=== PATIENT | male | born 1955 | race Caucasian/White ===

== ENCOUNTER → 2017-05-23 | Outpatient (CLI) | payer OTHER | END | disposition home or self-care (01) | LOC: RAD 12:51 | DX: R05 Cough (principal); R06.02 Shortness of breath ==

== ENCOUNTER → 2017-12-14 | Outpatient (CLI) | payer OTHER | END | disposition home or self-care (01) | LOC: RAD 16:13 | DX: M47.892 Other spondylosis, cervical region (principal); M47.897 Other spondylosis, lumbosacral region; M25.512 Pain in left shoulder ==

== ENCOUNTER 2022-01-27 18:32 | Emergency (ER) | payer MEDICARE, OTHER ==
[~2022-01-27] VITALS: Ht 180.3 cm; Wt 120.2 kg
[2022-01-27 19:26] LABS: HEMATOCRIT 46.4 % (42.0-52.0); MEAN CORPUSCULAR HGB 28.5 pg (27.0-31.0); MEAN CORPUSCULAR HGB CONC 32.3 g/dl (33.0-37.0); MEAN PLATELET VOLUME 10.3 fl (9.6-12.3); PLATELET COUNT AUTOMATED 376 10*3/uL (130-400); RED BLOOD COUNT 5.27 10*6/uL (4.50-5.90); RED CELL DISTRI WIDTH 13.9 % (0-14.5); WHITE BLOOD COUNT 14.7 10*3/uL (4.8-10.8)
[2022-01-27 19:31] LABS: MANUAL DIFF REFLEX YES
[2022-01-27 19:40] LABS: ACT PARTIAL THROMBO TIME 28.2 SECONDS (20.0-32.1)
[2022-01-27 19:42] LABS: ALKALINE PHOSPHATASE 100 U/L (46-116); BUN 18 mg/dl (9-23); CHLORIDE 96 mmol/L (98-107); CREATININE 0.81 mg/dL (0.70-1.30); LIPASE 22 U/L (12-53); POTASSIUM 4.4 mmol/L (3.4-5.1); SGPT/ALT 35 U/L (10-49); SODIUM 133 mmol/L (136-145); TOTAL PROTEIN 7.6 gm/dL (6.0-8.0)
[2022-01-27 19:52] LABS: PLATELET SUFFICIENCY NORMAL (NORMAL); TOTAL CELLS COUNTED 100 #CELLS
[2022-01-27] MEDS ORDERED: PREDNISONE10 MG PO (19:58)
[2022-01-27] MEDS ORDERED: VIBRA-TAB100 MG PO (19:58)
== END 2022-01-27 19:56 | disposition left against medical advice (07) ==
LOC: ED 18:32
PROVIDERS: Emergency Medicine
DX: J40 Bronchitis, not specified as acute or chronic (principal); J44.9 Chronic obstructive pulmonary disease, unspecified; Z87.891 Personal history of nicotine dependence

== ENCOUNTER 2023-05-11 10:36 | Emergency (ER) | payer OTHER ==
[~2023-05-11] VITALS: Ht 180.3 cm; Wt 73.5 kg
[~2023-05-11 10:36] MED LIST: PREDNISONE10 MG PO; VIBRA-TAB100 MG PO
[2023-05-11] MEDS ORDERED: Acetaminophen/Hydrocodone 5 MG/325 MG TABLET PO ONE (11:05)
[2023-05-11] MEDS ORDERED: Bacitracin Zinc 14 GM TUBE T ONE (12:35)
[2023-05-11] MEDS ORDERED: HYDROCODONE-AC1 EAC1 PO (12:39)
== END 2023-05-11 12:58 | disposition home or self-care (01) ==
LOC: ED 10:36
DX: S22.41XA Multiple fractures of ribs, right side, initial encounter for closed fracture (principal); S80.211A Abrasion, right knee, initial encounter; M54.50 Low back pain, unspecified; J44.9 Chronic obstructive pulmonary disease, unspecified; W19.XXXA Unspecified fall, initial encounter; Y93.89 Activity, other specified; Y92.89 Other specified places as the place of occurrence of the external cause; Y99.8 Other external cause status

== ENCOUNTER 2024-01-04 09:36 | Emergency (ER) | payer OTHER ==
[~2024-01-04] VITALS: Ht 180.3 cm; Wt 63.5 kg
[~2024-01-04 09:36] MED LIST changes: +HYDROCODONE-AC1 EAC1 PO
[2024-01-04] MEDS ORDERED: Phenylephrine HydrochloridE 0.5% NASAL 15 ML BOTTLE NAS ONE (09:50)
[2024-01-04 10:01] LABS: HEMATOCRIT 41.1 % (42.0-52.0); MEAN CELL VOLUME 94.3 fl (80.0-94.0); MEAN CORPUSCULAR HGB 29.8 pg (27.0-31.0); MEAN CORPUSCULAR HGB CONC 31.6 g/dl (33.0-37.0); MEAN PLATELET VOLUME 10.2 fl (9.6-12.3); PLATELET COUNT AUTOMATED 360 10*3/uL (130-400); RED BLOOD COUNT 4.36 10*6/uL (4.50-5.90); RED CELL DISTRI WIDTH 13.2 % (0-14.5); WHITE BLOOD COUNT 20.3 10*3/uL (4.8-10.8)
[2024-01-04 10:02] LABS: MANUAL DIFF REFLEX YES
[2024-01-04 10:22] LABS: BUN 38 mg/dl (9-23); CHLORIDE 98 mmol/L (98-107); POTASSIUM 4.5 mmol/L (3.4-5.1)
[2024-01-04 10:27] LABS: BURR CELLS FEW; OVALOCYTES FEW; PLATELET SUFFICIENCY NORMAL (NORMAL); POLYCHROMASIA SLIGHT; TOTAL CELLS COUNTED 100 #CELLS
[2024-01-04] MEDS ORDERED: Acetaminophen/Oxycodone 5 MG/325 MG TABLET PO ONE (10:55)
[2024-01-04] MEDS ORDERED: AVPAK AZITHROM250 MG PO (11:02)
[2024-01-04] MEDS ORDERED: TRAMADOL HCL50 MG PO (11:02)
== END 2024-01-04 11:04 | disposition home or self-care (01) ==
LOC: ED 09:36
PROVIDERS: Internal Medicine
DX: R04.0 Epistaxis (principal); J40 Bronchitis, not specified as acute or chronic; F17.200 Nicotine dependence, unspecified, uncomplicated

== ENCOUNTER 2024-02-13 08:02 | Emergency (ER) | payer OTHER ==
[~2024-02-13] VITALS: Ht 180.3 cm; Wt 63.5 kg
[~2024-02-13 08:02] MED LIST changes: +AVPAK AZITHROM250 MG PO; +TRAMADOL HCL50 MG PO
[2024-02-13] MEDS ORDERED: VENLAFAXINE HY150 M2 PO (08:24)
[2024-02-13] MEDS ORDERED: DILTIAZEM240 M1 PO (08:25)
[2024-02-13] MEDS ORDERED: METOPROLOL TAR100 M1 PO (08:25)
[2024-02-13] MEDS ORDERED: ZETIA10 MG PO (08:25)
[2024-02-13] MEDS ORDERED: Oxymetazoline Hydrochloride Nasal 15 ml bottle NAS ONE (08:25)
[2024-02-13] MEDS ORDERED: D3 PLUS K2 DOT1 EACH PO (08:27)
[2024-02-13] MEDS ORDERED: METFORMIN HYDR500 MG PO (08:27)
[2024-02-13] MEDS ORDERED: TRANEXAMIC ACID 1,000 MG in SODIUM CHLORIDE 0.9% 50 ML IV ONE (09:10)
[2024-02-13] MEDS ORDERED: TRANEXAMIC ACID IN NACL,ISO-OS 100 ML IV ONE (09:20)
[2024-02-13] MEDS ORDERED: TRANEXAMIC ACID 1,000 MG/10 ML VIAL ONE (09:30)
== END 2024-02-13 10:35 | disposition left against medical advice (07) ==
LOC: ED 08:02
DX: R04.0 Epistaxis (principal); Z79.899 Other long term (current) drug therapy; Z79.84 Long term (current) use of oral hypoglycemic drugs